=== PATIENT | male | born 1990 | race Two or more races ===

== ENCOUNTER 2016-11-12 13:04 | Emergency (ER) | payer BC ==
[2016-11-12 13:18] VITALS: BP 131/79; PULSE 76; RESP 18; TEMP 98.4; O2SAT 95
--- NOTE | 2016-11-12 13:22 | EDPHY ---
H & P Time Seen by Provider: 11/12/16 13:10 HPI/ROS: CHIEF COMPLAINT: Left ankle/foot pain HISTORY OF PRESENT ILLNESS: Patient is a 26-year-old male presents emergency department after twisting his left ankle. Patient states he step-down off a curb and twisted his foot medially. He now complains of left lateral ankle in left lateral foot pain. Pain is moderate. It does not radiate up his leg. Has increased discomfort with ambulation. No numbness or tingling. The patient did not sustain any other trauma. REVIEW OF SYSTEMS: Negative Past Medical/Surgical History: Negative Past surgical history: Negative Social history: The patient smokes Smoking Status: Current every day smoker Physical Exam: Vitals noted General Appearance: Alert and no distress. Head: Pupils equal. Normal. Respiratory: No respiratory distress. Cardiac: regular rate and rhythm. Extremities: patient has mild swelling over his left lateral malleolus. There is mild swelling over his left lateral foot. He has tenderness palpation over his 5th metatarsal. There is mild tenderness palpation inferior to inferior left lateral malleolus. No proximal tib-fib or knee discomfort. Brisk capillary refill. Neurovascular intact distally. Skin: No rashes or lesions. Neuro: Alert. Normal mood and affect. Constitutional: Initial Vital Signs Temperature (C) 36.9 C 11/12/16 13:15 Heart Rate 76 11/12/16 13:15 Respiratory Rate 18 11/12/16 13:15 Blood Pressure 131/79 H 11/12/16 13:15 O2 Sat (%) 95 11/12/16 13:15 O2 Delivery Mode Room Air Allergies/Adverse Reactions: No Known Allergies Allergy (Verified 11/11/15 22:29) Home Medications: Medication Instructions Recorded Hydrocodone/APAP 5/325 [[place] 1 - 2 tab PO Q4 #7 tab 11/12/16 5/325 (RX)] Medical Decision Making - Diagnostics Imaging Results: Imaging Impressions Foot X-Ray 11/12/16 13:15 Impression: Negative left foot radiographs. Ankle X-Ray 11/12/16 13:16 Impression: Negative left ankle series. Procedures: Pagan boot placement. This was placed by the ED staff. Neurovascularly intact distally post placement. ED Course/Re-evaluation: In the emergency department I discussed possible etiologies with the patient. He consented to an x-ray. Left foot and ankle x-ray: Please refer the dictated report by the radiologist. No fracture or dislocation. I discussed the results with the patient. I answered all his questions. Patient was given a Clark boot and crutches. He will follow up with Orthopedics. He is given warnings prior to leaving. He will return with worsening symptoms. Differential Diagnosis: My differential includes but is not limited to fracture, dislocation, sprain, strain, contusion Departure - Departure Disposition: Home, Routine, Self-Care Clinical Impression: Left foot pain Left ankle pain Qualifiers: Chronicity: acute Qualified Code(s): M25.572 - Pain in left ankle and joints of left foot Condition: Good Instructions: Ankle Sprain (ED), Foot Sprain (ED) Referrals: ELIGIO GILBERT,. [Primary Care Provider] - 5-7 days, if not improved Magnus Cade MD [Medical Doctor] - 5-7 days, call for appt. Prescriptions: Hydrocodone/APAP 5/325 [[place] 5/325 (RX)] 1 - 2 tab PO Q4 #7 tab
== END 2016-11-12 14:34 | disposition home or self-care (01) ==
LOC: CED 13:04
DX: S99.912A Unspecified injury of left ankle, initial encounter (principal); S99.922A Unspecified injury of left foot, initial encounter; F17.200 Nicotine dependence, unspecified, uncomplicated; X58.XXXA Exposure to other specified factors, initial encounter
CPT/HCPCS: 73610-PO; 73630-PO; L4386

== ENCOUNTER 2017-05-22 18:05 | Emergency (ER) | payer SELFPAY ==
[2017-05-22 18:34] VITALS: BP 137/92; PULSE 85; RESP 16; TEMP 97.7; O2SAT 98
[2017-05-22] MEDS ORDERED: KETOROLAC 30 MG/1 ML SDV IM ONE (18:55)
--- NOTE | 2017-05-22 18:59 | EDPHY ---
H & P Stated Complaint: R KNEE PAIN Time Seen by Provider: 05/22/17 18:26 HPI/ROS: CHIEF COMPLAINT: Right knee pain HISTORY OF PRESENT ILLNESS: The patient is a 27-year-old man who comes to the emergency department complaining of right knee pain. He states that he fractured his patella 1 year ago in that it healed well but he got a new job last week. He has been using his knee more than usual and doing more lifting. He denies any significant trauma but states that he is having pain from overuse. He has had some relief with ibuprofen. He has tried icing it. No history of gout or arthritis. REVIEW OF SYSTEMS: Constitutional: denies: chills, fever, recent illness, recent injury EENTM: denies: blurred vision, double vision, nose congestion Respiratory: denies: cough, shortness of breath Cardiac: denies: chest pain, irregular heart rate, lightheadedness, palpitations Gastrointestinal/Abdominal: denies: abdominal pain, diarrhea, nausea, vomiting, blood streaked stools Genitourinary: denies: dysuria, frequency, hematuria, pain Musculoskeletal: See HPI Skin: denies: lesions, rash, jaundice, bruising Neurological: denies: headache, numbness, paresthesia, tingling, dizziness, weakness Hematologic/Lymphatic: denies: blood clots, easy bleeding, easy bruising Immunologic/allergic: denies: HIV/AIDS, transplant EXAM: GENERAL: Well-appearing, well-nourished and in no acute distress. HEAD: Atraumatic, normocephalic. EYES: Pupils equal round and reactive to light, extraocular movements intact, sclera anicteric, conjunctiva are normal. ENT: TMs normal, nares patent, oropharynx clear without exudates. Moist mucous membranes. NECK: Normal range of motion, supple without lymphadenopathy or JVD. LUNGS: Breath sounds clear to auscultation bilaterally and equal. No wheezes rales or rhonchi. HEART: Regular rate and rhythm without murmurs, rubs or gallops. ABDOMEN: Soft, nontender, normoactive bowel sounds. No guarding, no rebound. No masses appreciated. BACK: No CVA tenderness, no spinal tenderness, step-offs or deformities EXTREMITIES: Right knee pain over the patellar tendon. No laxity. Normal strength and extension of knee. No swelling or deformity. No erythema. NEUROLOGICAL: Cranial nerves II through XII grossly intact. Normal speech, normal gait. 5/5 strength, normal movement in all extremities, normal sensation PSYCH: Normal mood, normal affect. SKIN: Warm, dry, normal turgor, no visible rashes or lesions. Source: Patient Exam Limitations: No limitations - Personal History Current Tetanus Diphtheria and Acellular Pertussis (TDAP): Yes Tetanus Vaccine Date: WITHIN 10 YRS - Medical/Surgical History Hx Asthma: No Hx Chronic Respiratory Disease: No Hx Diabetes: No Hx Cardiac Disease: No Hx Renal Disease: No Hx Cirrhosis: No Hx Alcoholism: No Hx HIV/AIDS: No Hx Splenectomy or Spleen Trauma: No Other PMH: DENIES - Family History Significant Family History: No pertinent family hx - Social History Smoking Status: Current every day smoker Alcohol Use: Sober Constitutional: Initial Vital Signs Temperature (C) 36.5 C 05/22/17 18:33 Heart Rate 85 05/22/17 18:33 Respiratory Rate 16 05/22/17 18:33 Blood Pressure 137/92 H 05/22/17 18:33 O2 Sat (%) 98 05/22/17 18:33 O2 Delivery Mode Room Air Allergies/Adverse Reactions: No Known Allergies Allergy (Verified 11/11/15 22:29) Home Medications: Medication Instructions Recorded Ketorolac Tromethamine [Toradol] 10 mg PO Q6H #16 tab 05/22/17 Medical Decision Making ED Course/Re-evaluation: I do not feel that x-rays would be beneficial and the patient agrees. He is primarily requesting pain control. I will give him a dose of Toradol and a short prescription and encouraged rest, pressure ice and elevation. The patient understands and agrees with this plan. We discussed indications for returning and the importance of follow-up. Differential Diagnosis: Partial list of the Differential diagnosis considered include but were not limited to; tendinitis, bursitis, and although unlikely based on the history and physical exam, I also considered fracture, rupture, vascular injury, infection, gout, arthritis. I discussed these differential diagnoses and the plan with the patient as well as the usual and expected course. The patient understands that the diagnosis is provisional and that in medicine we are not always correct and that further workup is often warranted. Usual and customary warnings were given. All of the patient's questions were answered. The patient was instructed to return to the emergency department should the symptoms at all worsen or return, otherwise to followup with the physician as we discussed. - Data Points Medications Given: Discontinued Medications Ketorolac Tromethamine (Toradol) 30 mg IM EDNOW ONE Stop: 05/22/17 18:56 Last Admin: 05/22/17 19:00 Dose: 30 mg Departure - Departure Disposition: Home, Routine, Self-Care Clinical Impression: Tendinitis Condition: Good Instructions: Patellar Tendinitis (ED) Referrals: Cr Garcia MD [Primary Care Provider] - As per Instructions Prescriptions: Ketorolac Tromethamine [Toradol] 10 mg PO Q6H #16 tab
== END 2017-05-22 19:04 | disposition home or self-care (01) ==
LOC: CED 18:05
DX: M76.891 Other specified enthesopathies of right lower limb, excluding foot (principal); F17.200 Nicotine dependence, unspecified, uncomplicated
CPT/HCPCS: J1885

== ENCOUNTER 2018-05-26 11:24 | Emergency (ER) | payer BC, MEDICAID ==
--- NOTE | 2018-05-26 13:04 | EDPHY ---
H & P Time Seen by Provider: 05/26/18 11:28 HPI/ROS: CHIEF COMPLAINT: Knee pain HISTORY OF PRESENT ILLNESS: Patient states he has had right knee pain. He describes it as in the front at the bottom of his patella. He states it is worse when he bends down. He was at work today and it was quite severe so he came in for evaluation. He states he has had pain to this knee off and on for some time. He thinks he may have broke his knee in 2016. He denies any new trauma. There is no redness, swelling, heat to the joint. No open lesions. He last took ibuprofen this morning which he states does help. REVIEW OF SYSTEMS: Negative except per HPI. General Appearance: Alert, no distress. Eyes: Pupils equal and round no icterus Respiratory: No respiratory distress Neurological: Awake, alert, no focal deficits. Skin: Warm and dry, no rashes. Musculoskeletal: Neck is supple nontender. Extremities are symmetrical, full range of motion, no edema. Point tenderness to the anterior inferior aspect of the patella at tendon insertion. Distal intact. Psychiatric: Patient is oriented X 3, there is no agitation. Medical/surgical history: Noncontributory. Social history: Smokes tobacco, denies ETOH. Smoking Status: Current every day smoker Constitutional: Initial Vital Signs Temperature (C) 37.1 C 05/26/18 11:31 Heart Rate 104 H 05/26/18 11:31 Respiratory Rate 16 05/26/18 11:31 Blood Pressure 143/91 H 05/26/18 11:31 O2 Sat (%) 94 05/26/18 11:31 O2 Delivery Mode Room Air Allergies/Adverse Reactions: No Known Allergies Allergy (Verified 05/26/18 11:33) Home Medications: Medication Instructions Recorded Ketorolac Tromethamine [Toradol] 10 mg PO Q6H #16 tab 05/22/17 Medical Decision Making ED Course/Re-evaluation: Reviewed old records, history of inferior patella fracture in 2016. Differential Diagnosis: Patient with intermittent isolated anterior knee pain likely from old injury. No signs of new trauma, tendon rupture, neurovascular compromise. No suggestion or evidence of infection to the bursa or joint. Discussed the use of ibuprofen, neoprene knee brace, orthopedic follow-up as indicated. Also recommended icing area. Understands treatment plan and follow-up. Stable for discharge. Departure - Departure Disposition: Home, Routine, Self-Care Clinical Impression: Knee pain, chronic Condition: Good Instructions: Knee Pain (ED) Additional Instructions: Try a neoprene knee brace as discussed. Also continue ibuprofen, ice frequently. Try to reduce deep knee bends as able. Follow up with orthopedist in 1 week if not improving. Referrals: Cr Garcia MD [Primary Care Provider] - As per Instructions Magnus Oshea MD [Medical Doctor] - As per Instructions
[2018-05-26 13:37] VITALS: BP 142/80
== END 2018-05-26 13:36 | disposition home or self-care (01) ==
LOC: CED 11:24
DX: M25.561 Pain in right knee (principal)
CPT/HCPCS: 73564-PO; 99283-ER